=== PATIENT | male | born 1965 | race Caucasian/White ===

== ENCOUNTER → 2017-04-29 14:24 | Outpatient (REF) | payer OTHER, SELFPAY ==
[2017-04-29 17:02] LABS: Basophils % 0.4 % (0.1-2.0); Eosinophils # 0.1 K/mm3 (0.0-0.4); Eosinophils % 0.9 % (0.1-12.0); Hematocrit 49.3 % (42.0-52.0); Hemoglobin 16.1 g/dL (14.1-18.0); Lymphocytes # 2.2 K/mm3 (0.7-4.5); Lymphocytes % 21.6 K/mm3 (10-50); Mean Corpuscular HGB Conc 32.6 g/dL (31.8-35.4); Mean Corpuscular Hemoglobin 30.2 pg (27.0-31.2); Mean Corpuscular Volume 92.6 fl (80-94); Mean Platelet Volume 9.6 fl (7.4-10.4); Monocytes # 0.6 K/mm3 (0.1-1.0); Monocytes % 5.4 % (1.7-9.3); Neutrophils # 7.3 K/mm3 (1.8-7.8); Neutrophils % 71.7 % (37.0-80.0); Platelet Count 255 K/mm3 (142-424); Red Blood Count 5.32 M/mm3 (4.60-6.20); Red Cell Distribution Width 12.9 % (11.5-17.5); White Blood Count 10.1 K/mm3 (4.8-10.8)
[2017-04-29 17:40] LABS: Alanine Aminotransferase 54 U/L (12-78); Albumin Level 4.4 gm/dL (3.4-5.0); Albumin/Globulin Ratio 1.5 (1.1-1.8); Alkaline Phosphatase 68 U/L (46-116); Aspartate Amino Transferase 33 U/L (15-37); Bilirubin,Total 0.6 mg/dL (0.2-1.0); Blood Urea Nitrogen 13 mg/dL (7-18); Calcium 9.5 mg/dL (8.5-10.1); Carbon Dioxide 27 mmol/L (21.0-32.0); Chloride 103 mmol/L (98-107); Chol/HDL Ratio 4.3 (1-3.5); Cholesterol 222 mg/dL (140-200); Creatinine,Serum 0.95 mg/dL (0.70-1.30); Estimated Glomerular Filt Rate 84 ml/min (>60); GFR (African American) 102 ML/MIN (>60); Glucose 92 mg/dL (74-106); HDL Cholesterol 52 mg/dL (27-67); LDL Cholesterol 152 mg/dL (0-130); Sodium 141 mmol/L (136-145); Thyroid Stimulating Hormone 0.63 uIU/ml (0.358-3.740); Total Protein,Serum 7.4 gm/dL (6.4-8.2); Triglycerides 92 mg/dL (30-200); VLDL Cholesterol 18 mg/dL (0-40)
== END ==
LOC: LAB 14:24
PROVIDERS: Visit Provider Emergency Medicine
DX: R53.83 Other fatigue (principal)
CPT/HCPCS: 80053; 80061; 84439; 84443; 85025

== ENCOUNTER 2017-05-09 14:03 | Outpatient (RCR) | payer OTHER, SELFPAY ==
--- NOTE | 2017-05-09 15:35 | HMH.PTOPEV ---
Rehab Outpatient Evaluation Rehab OP Evaluation Start: 05/09/17 14:40 Freq: Status: Active Protocol: Document 05/09/17 14:40 PWBETTY (Rec: 05/09/17 15:34 PWBETTY [id number]) Electronically Signed By Karthik Cuellar PT 05/09/17 14:40 Outpatient Therapy Subjective History Subjective History This is the initial Physical Therapy evaluation for Petar Montalvo. Pt is a 51 y/o male referred to PT for c/o back Pain . Pt rpeorts chronic back pain for several years w/ on and off frequency. PT rpeorts this bout bagan ~ 4 weeks ago w/ insidious onset. Pt reports Xray for spine shows arthritis Chief Complaint Pain Stiff Symptom Type Sharp Burning Symptoms Relieved By Nothing Symptoms Aggravated By Sitting Standing Bending/Stooping Physical Activity Walking Lifting Prior Functional Limitations None Current Functional Limitations Lifting Housework Sleeping Recreation Activity Walking Bending/Stooping Symptom Description Constant but Variable Pain at Rest Activity Dependent Pain scale - at its best (0-10) 5 Pain scale - at its worst (0-10) 2 Lumbopelvic Eval Posture Thoracic Spine Posture Standing Position Flattened Lumbar Spine Posture Standing Position Flattened Assistive device Assistive Devices None / NA Palapation tenderness bilateral thoracic spinal tenderness Yes lumbar spinal tenderness Yes paraspinal tenderness Yes buttock tenderness No tenderness over symphysis pubis No Lumbar/Sacral Palpation Findings Tenderness Muscle Guarding Range of Motion Lumbar Spine Active Flexion Range of 40 Motion (degrees) Lumbar Spine Active Extension Range of 10 Motion (degrees) Left Lumbar Spine Lateral Flexion Active 25 Range of Motion (degrees) Right Lumbar Spine Lateral Flexion 25 Active Range of Motion (degrees) Lumbar Spine ROM Limitations Pain DTR Rt Patellar 2+ Lt Patellar
== END 2017-05-09 14:05 | disposition home or self-care (01) ==
LOC: PT 14:03
PROVIDERS: Family Provider Family Medicine; PCP Emergency Medicine; Visit Provider Emergency Medicine
DX: M54.9 Dorsalgia, unspecified (principal)

== ENCOUNTER → 2017-08-17 14:24 | Outpatient (CLI) | payer OTHER, SELFPAY ==
--- NOTE | 2017-08-17 14:27 | MR_ITS ---
MR lumbar spine wo con, MR 3-d myelogram/MRCP HISTORY: Lt Sided LBP. Rt Leg numbness in thigh. Symptoms X6-8 Months. No trauma. ORDERING PHYSICIAN: Jamison Cormier MD PATIENT AGE: 51 years TECHNIQUE: Standard multiplanar multiecho sequences are performed without contrast. 3-D MIP and myelographic images are also rendered and reviewed FINDINGS: Normal alignment. Spinal cord ends at the L2 level. The disc spaces are well-preserved. No fracture or dislocation. No disc herniation or significant disc bulge. There are mild facet and ligamentum flavum hypertrophic changes at L3-L4, L4-L5, and L5-S1 with mild bilateral foraminal narrowing at L4-L5. No canal stenosis IMPRESSION: 1. Mild facet ligamentum flavum hypertrophic changes with mild bilateral foraminal narrowing at L4-5. 2. No canal stenosis or extruded herniated disc
== END ==
PROVIDERS: Family Provider Family Medicine; PCP Emergency Medicine; Visit Provider Emergency Medicine
DX: M54.5 Low back pain (principal)
CPT/HCPCS: 72148; 76376

== ENCOUNTER → 2017-09-13 07:56 | Outpatient (POV) | payer OTHER, SELFPAY ==
[2017-09-13 08:36] VITALS: BP 159/104; PULSE 86; RESP 18; O2SAT 98; BMI 29.4
--- NOTE | 2017-09-13 09:01 | HMH.PAINSOAP ---
[facility] Pain Management SOAP Note Subjective:: This patient is a 51-year-old white male who presents today for follow-up. Patient was seen last year and sent to physical therapy and did not follow-up after this. Patient states he still in physical therapy. Patient has switched primary care physician since then. Patient presents today to discuss his recent lumbar MRI. Patient's MRI shows mild facet changes and mild foraminal narrowing. Patient has no bulging disks or canal stenosis noted. Patient states most of his pain is in his low back and down his legs. Patient states he also has neck pain at times. Patient does not understand why he can get an MRI of his entire back. Patient and I discussed injective therapy he is uninterested in this. Patient states he would just like to have medications. I discussed with the patient that given his pathology and not completing more conservative measures he is not a narcotic candidate at this time. Patient is currently on gabapentin from his primary care physician which is appropriate for his pathology. Patient rates his pain today an 8 out of 10. ROS General: no recent weight change, no fever, no sleep disturbances Respiratory: no cough, no shortness of air, no recurring pulmonary infections Cardiovascular/Peripheral Vascular: No chest pain, No palpitations, no edema, no shortness of breath. Gastrointestinal: no incontinence, normal bowel movements reported Genitourinary: no incontinence Musculoskeletal: Back pain, leg pain Psychiatric: normal mood/ affect Neurological: [denies weakness in extremities], [denies balance issues] Objective:: Physical Exam General: Alert and oriented x3, no acute distress, pleasant and cooperative, [on room air] Lungs: Resps E/U, Symmetrical chest expansion, Eyes: PERRL Musculoskeletal: Flexion and extension of lumbar spine somewhat guarded secondary to pain, deep tendon reflexes normal, strength in upper and lower extremities [5/5], normal gait noted Neurological: speech clear, is analyst equal, no gross sensory deficits Assessment:: Facet hypertrophy Plan:: I offered the patient injective therapy he is uninterested in this. He states that he would like to just take medications. Patient is not a narcotic candidate. I gave the patient information on injective therapy he will call our office if he is interested in the future. This note was dictated using voice recognition software and may contain errors or omissions
--- NOTE | 2017-09-13 09:04 | P.CONS_ITS ---
[facility] Pain Management SOAP Note Subjective:: This patient is a 51-year-old white male who presents today for follow-up. Patient was seen last year and sent to physical therapy and did not follow-up after this. Patient states he still in physical therapy. Patient has switched primary care physician since then. Patient presents today to discuss his recent lumbar MRI. Patient's MRI shows mild facet changes and mild foraminal narrowing. Patient has no bulging disks or canal stenosis noted. Patient states most of his pain is in his low back and down his legs. Patient states he also has neck pain at times. Patient does not understand why he can get an MRI of his entire back. Patient and I discussed injective therapy he is uninterested in this. Patient states he would just like to have medications. I discussed with the patient that given his pathology and not completing more conservative measures he is not a narcotic candidate at this time. Patient is currently on gabapentin from his primary care physician which is appropriate for his pathology. Patient rates his pain today an 8 out of 10. ROS General: no recent weight change, no fever, no sleep disturbances Respiratory: no cough, no shortness of air, no recurring pulmonary infections Cardiovascular/Peripheral Vascular: No chest pain, No palpitations, no edema, no shortness of breath. Gastrointestinal: no incontinence, normal bowel movements reported Genitourinary: no incontinence Musculoskeletal: Back pain, leg pain Psychiatric: normal mood/ affect Neurological: [denies weakness in extremities], [denies balance issues] Objective:: Physical Exam General: Alert and oriented x3, no acute distress, pleasant and cooperative, [ on room air] Lungs: Resps E/U, Symmetrical chest expansion, Eyes: PERRL Musculoskeletal: Flexion and extension of lumbar spine somewhat guarded secondary to pain, deep tendon reflexes normal, strength in upper and lower extremities [5/5], normal gait noted Neurological: speech clear, transmitter engineer in charge equal, no gross sensory deficits Assessment:: Facet hypertrophy Plan:: I offered the patient injective therapy he is uninterested in this. He states that he would like to just take medications. Patient is not a narcotic candidate. I gave the patient information on injective therapy he will call our office if he is interested in the future. This note was dictated using voice recognition software and may contain errors or omissions
== END ==
PROVIDERS: Family Provider Family Medicine; PCP Emergency Medicine; Visit Provider Clinical Nurse Specialist Family Health
DX: M12.88 Other specific arthropathies, not elsewhere classified, other specified site (principal)
CPT/HCPCS: 99212

== ENCOUNTER → 2018-03-28 17:51 | Outpatient (CLI) | payer OTHER, SELFPAY ==
[2018-03-28 21:47] LABS: Amphetamine/Metha Screen,Urine Negative ng/mL (<1000); Barbiturates Screen,Urine Negative ng/mL (<200); Benzodiazepines Screen,Urine Negative ng/mL (<200); Cannabinoid Screen,Urine Negative ng/mL (<50); Cocaine Screen,Urine Negative ng/mL (<300); Methadone Screen,Urine Negative ng/mL (<300); Opiate Screen,Urine Positive ng/mL (<300); Phencyclidine Screen,Urine Negative ng/mL (<25)
== END ==
PROVIDERS: Visit Provider Emergency Medicine
DX: Z79.899 Other long term (current) drug therapy (principal)
CPT/HCPCS: 80305

== ENCOUNTER → 2018-04-26 19:29 | Outpatient (CLI) | payer OTHER, SELFPAY ==
[2018-04-26 20:29] LABS: Amphetamine/Metha Screen,Urine Negative ng/mL (<1000); Barbiturates Screen,Urine Negative ng/mL (<200); Benzodiazepines Screen,Urine Negative ng/mL (<200); Cannabinoid Screen,Urine Negative ng/mL (<50); Cocaine Screen,Urine Positive ng/mL (<300); Methadone Screen,Urine Negative ng/mL (<300); Opiate Screen,Urine Negative ng/mL (<300); Phencyclidine Screen,Urine Negative ng/mL (<25)
[2018-05-01 09:13] LABS: Benzoylecgonine (GC/MS) >5000 ng/mL (Cutoff=150); Cocaine + Metabolite Positive (.)
== END ==
PROVIDERS: Visit Provider Emergency Medicine
DX: Z79.899 Other long term (current) drug therapy (principal)
CPT/HCPCS: 80305; 80353

== ENCOUNTER → 2018-05-24 19:47 | Outpatient (CLI) | payer OTHER, SELFPAY ==
[2018-05-24 20:32] LABS: Amphetamine/Metha Screen,Urine Negative ng/mL (<1000); Barbiturates Screen,Urine Negative ng/mL (<200); Benzodiazepines Screen,Urine Negative ng/mL (<200); Cannabinoid Screen,Urine Positive ng/mL (<50); Cocaine Screen,Urine Negative ng/mL (<300); Methadone Screen,Urine Negative ng/mL (<300); Opiate Screen,Urine Positive ng/mL (<300); Phencyclidine Screen,Urine Negative ng/mL (<25)
== END ==
PROVIDERS: Visit Provider Emergency Medicine
DX: Z79.899 Other long term (current) drug therapy (principal)
CPT/HCPCS: 80305

== ENCOUNTER → 2018-06-20 17:44 | Outpatient (CLI) | payer OTHER, SELFPAY ==
[2018-06-20 18:26] LABS: Basophils % 0.5 % (0.1-2.0); Eosinophils # 0.1 K/mm3 (0.0-0.4); Eosinophils % 1.2 % (0.1-12.0); Hemoglobin 16.6 g/dL (14.1-18.0); Lymphocytes # 2.1 K/mm3 (0.7-4.5); Lymphocytes % 25.1 % (10-50); Mean Corpuscular HGB Conc 33.8 g/dL (31.8-35.4); Mean Corpuscular Hemoglobin 30.9 pg (27.0-31.2); Mean Corpuscular Volume 91.6 fl (80-94); Mean Platelet Volume 9.5 fl (7.4-10.4); Monocytes # 0.5 K/mm3 (0.1-1.0); Monocytes % 6.1 % (1.7-9.3); Neutrophils # 5.6 K/mm3 (1.8-7.8); Neutrophils % 67.1 % (37.0-80.0); Platelet Count 245 K/mm3 (142-424); Red Blood Count 5.35 M/mm3 (4.60-6.20); Red Cell Distribution Width 13.3 % (11.5-17.5); White Blood Count 8.3 K/mm3 (4.8-10.8)
[2018-06-20 18:58] LABS: Amphetamine/Metha Screen,Urine Negative ng/mL (<1000); Barbiturates Screen,Urine Negative ng/mL (<200); Benzodiazepines Screen,Urine Negative ng/mL (<200); Cannabinoid Screen,Urine Positive ng/mL (<50); Cocaine Screen,Urine Negative ng/mL (<300); Methadone Screen,Urine Negative ng/mL (<300); Opiate Screen,Urine Negative ng/mL (<300); Phencyclidine Screen,Urine Negative ng/mL (<25)
[2018-06-20 19:48] LABS: Alanine Aminotransferase 36 U/L (12-78); Albumin Level 3.6 gm/dL (3.4-5.0); Albumin/Globulin Ratio 1.2 (1.1-1.8); Alkaline Phosphatase 58 U/L (46-116); Aspartate Amino Transferase 27 U/L (15-37); Bilirubin,Total 0.5 mg/dL (0.2-1.0); Blood Urea Nitrogen 10 mg/dL (7-18); Carbon Dioxide 26 mmol/L (21.0-32.0); Chloride 104 mmol/L (98-107); Chol/HDL Ratio 3.7 (1-3.5); Cholesterol 158 mg/dL (140-200); Creatinine,Serum 0.88 mg/dL (0.70-1.30); Estimated Glomerular Filt Rate 91 ml/min (>60); GFR (African American) 110 ML/MIN (>60); Glucose 86 mg/dL (74-106); HDL Cholesterol 43 mg/dL (27-67); LDL Cholesterol 81 mg/dL (0-130); Sodium 141 mmol/L (136-145); T4 (Thyroxine) 8.4 ug/dl (4.7-13.3); Thyroid Stimulating Hormone 0.46 uIU/ml (0.358-3.740); Total Protein,Serum 6.6 gm/dL (6.4-8.2); Triglycerides 168 mg/dL (30-200); VLDL Cholesterol 34 mg/dL (0-40)
== END ==
PROVIDERS: Visit Provider Emergency Medicine
DX: R53.83 Other fatigue (principal); E10.9 Type 1 diabetes mellitus without complications; Z79.899 Other long term (current) drug therapy
CPT/HCPCS: 80053; 80061; 80305; 82652; 84436; 84443; 85025

== ENCOUNTER → 2018-07-07 12:44 | Outpatient (CLI) | payer OTHER, SELFPAY ==
--- NOTE | 2018-07-07 12:46 | MR_ITS ---
MR lumbar spine wo con, MR 3-d myelogram/MRCP HISTORY: LBP RT sided LBP. Bilateral feet numbness when laying down. Symptoms XYRS. NO hx back surgery. ITS.REASON: back pain ORDERING PHYSICIAN: Jamison Cormier MD PATIENT AGE: 52 years Comparison: MRI 08-17-17 TECHNIQUE: Standard multiplanar multiecho sequences are performed without contrast. 3-D MIP and myelographic images are also rendered and reviewed FINDINGS: There is normal alignment. The spinal cord ends at the L2 level. L1-L2: Unremarkable. L2-L3: Unremarkable. L3-L4: Mild facet and ligamentum flavum hypertrophy with mild bilateral foraminal narrowing. L4-5: Mild bilateral foraminal narrowing from facet and ligamentum flavum hypertrophy. L5-S1: Mild facet and ligamentum flavum hypertrophy with mild bilateral foraminal narrowing. No disc herniation or canal stenosis and no significant change compared to the previous exam. IMPRESSION: 1. Mild facet and ligamentum hypertrophy with mild foraminal narrowing similar to the previous exam. 2. No disc herniation or canal stenosis
== END ==
PROVIDERS: PCP Emergency Medicine; Visit Provider Emergency Medicine
DX: M54.5 Low back pain (principal)
CPT/HCPCS: 72148; 76376

== ENCOUNTER → 2018-09-05 13:40 | Outpatient (CLI) | payer OTHER, SELFPAY ==
[2018-09-05 19:00] LABS: Amphetamine/Metha Screen,Urine Negative ng/mL (<1000); Barbiturates Screen,Urine Negative ng/mL (<200); Benzodiazepines Screen,Urine Negative ng/mL (<200); Cannabinoid Screen,Urine Negative ng/mL (<50); Cocaine Screen,Urine Negative ng/mL (<300); Methadone Screen,Urine Negative ng/mL (<300); Opiate Screen,Urine Positive ng/mL (<300); Phencyclidine Screen,Urine Negative ng/mL (<25)
[2018-09-10 17:06] LABS: Gabapentin,Urine Negative (.)
[2018-09-11 06:08] LABS: Codeine Negative (Cutoff=100); Hydrocodone Positive (.); Hydromorphone Positive (.); Morphine Negative (Cutoff=100)
[2018-09-12 09:49] LABS: Hydrocodone Confirm 2311 ng/mL (Cutoff=100); Hydromorphone Confirm 845 ng/mL (Cutoff=100); Opiates Positive (.)
== END ==
PROVIDERS: Visit Provider Nurse Practitioner Family
DX: Z79.899 Other long term (current) drug therapy (principal)
CPT/HCPCS: 80305; 80307; 80361; G0480